=== PATIENT | female | born 1930 | race Caucasian/White ===

== ENCOUNTER 2016-12-10 00:18 | Inpatient (IN) | payer MEDICARE, OTHER ==
[~2016-12-10] VITALS: Ht 152.4 cm; Wt 80.4 kg
[~2016-12-10 00:18] MED LIST: ATEN1TAB3 PO; CIPR500T87 PO; CLOP75TA PO; FENO48TA16 PO; FLUO20SO PO; GLYB5TAB3 PO; LOSA100T6 PO; LOVA40TA2 PO; PIOG30TA8 PO; POTA20TA6 PO
[2016-12-10] MEDS ORDERED: SODIUM CHLORIDE 0.9% 1,000 ML IV ONE (00:24)
[2016-12-10] MEDS ORDERED: SODIUM CHLORIDE FLUSH 10ML SYR IVF ONE (00:30)
[2016-12-10] MEDS ORDERED: ONDANSETRON 2MG/ML, 2ML IVPush ONE (00:30)
[2016-12-10] MEDS ORDERED: ONDANSETRON 2MG/ML, 2ML ONE (00:39)
[2016-12-10] MEDS ORDERED: MORPHINE SULFATE 4 MG/ML, 1ML ONE ×2 (00:39→02:11)
[2016-12-10] MEDS ORDERED: FENO48TA5 PO (00:42)
[2016-12-10] MEDS ORDERED: CLOP75TA PO (00:42)
[2016-12-10] MEDS ORDERED: CHLO25TA PO (00:42)
[2016-12-10] MEDS ORDERED: ATEN25TA PO (00:42)
[2016-12-10] MEDS ORDERED: DONE10TA14 PO (00:42)
[2016-12-10] MEDS: MORPHINE SULFATE 4 MG/ML, 1ML IVPush PRN ×2 (00:57→02:15)
[2016-12-10 02:07] LABS: BLOOD UREA NITROGEN 28 mg/dL (7-18)
[2016-12-10] MEDS ORDERED: ACETAMINOPHEN 325 MG TABLET PO PRN (03:30)
[2016-12-10] MEDS ORDERED: DEXTROSE 50%, 50ML SYRINGE IVPush PRN (03:30)
[2016-12-10] MEDS ORDERED: ONDANSETRON 2MG/ML, 2ML IVPush PRN (03:30)
[2016-12-10] MEDS ORDERED: POLYETHYLENE GLYCOL 17 GM PACKET PO PRN (03:30)
[2016-12-10] MEDS ORDERED: DEXTROSE 4 GM TAB.CHEW PO PRN (03:30)
[2016-12-10] MEDS ORDERED: BISACODYL 10 MG SUPP PR PRN (03:30)
[2016-12-10] MEDS ORDERED: GLUCAGON 1 MG IM PRN (03:30)
[2016-12-10] MEDS: morphine SULFATE 10 MG/ML, 1ML IVPush PRN ×3 (03:52→21:45)
[2016-12-10] MEDS: LORazepam 0.5MG TABLET PO PRN ×2 (04:07→17:01)
[2016-12-10] MEDS: ENOXAPARIN 30 MG/0.3 ML SQ SCH (04:07)
[2016-12-10 04:27] VITALS: BP 146/74
[2016-12-10] MEDS: NS + 20MEQ KCL 1,000 ML IV SCH ×2 (04:29→23:03)
[2016-12-10] MEDS: INSULIN ASPART 100 UNITS/ML, PEN SQ-INSULIN SCH ×5 (04:49→23:25)
[2016-12-10 07:00] VITALS: BP 100/54
[2016-12-10] MEDS: HYDROcodone/APAP 5/325 TABLET PO PRN (08:48)
[2016-12-10] MEDS: FENOFIBRATE 54 MG TABLET PO SCH (08:48)
[2016-12-10] MEDS: DOCUSATE 100 MG CAPSULE PO PRN (08:48)
[2016-12-10] MEDS: POTASSIUM CHLORIDE 20 MEQ TAB.ER.PRT PO SCH (08:49)
[2016-12-10] MEDS: DONEPEZIL 10 MG TABLET PO SCH (08:49)
[2016-12-10] MEDS: CLOPIDOGREL 75 MG TABLET PO SCH (08:49)
[2016-12-10] MEDS: SODIUM CHLORIDE FLUSH 10ML SYR IVF SCH ×2 (08:49→21:45)
[2016-12-10] MEDS: FLUOXETINE 20 MG CAPSULE PO SCH (08:49)
[2016-12-10] MEDS ORDERED: ATENOLOL 25 MG TABLET PO SCH (09:00)
[2016-12-10] MEDS ORDERED: CHLORTHALIDONE 25 MG TABLET PO SCH (09:00)
[2016-12-10] MEDS ORDERED: LOSARTAN 50MG TABLET PO SCH (09:00)
[2016-12-10 12:18] VITALS: BP 84/47
[2016-12-10 16:38] VITALS: BP 111/72
[2016-12-10 20:27] VITALS: BP 123/79
[2016-12-10] MEDS: LOVASTATIN 40 MG TABLET PO SCH ×2 (21:45→21:53)
[2016-12-10] MEDS: ATENOLOL 25 MG TABLET PO SCH ×2 (21:45→21:53)
[2016-12-11] MEDS: morphine SULFATE 10 MG/ML, 1ML IVPush PRN ×3 (00:53→10:10)
[2016-12-11 02:35] VITALS: BP 105/64
[2016-12-11] MEDS: ENOXAPARIN 30 MG/0.3 ML SQ SCH (04:05)
[2016-12-11 05:48] LABS: ASPARTATE AMINO TRANSFERASE 14 U/L (15-37); BLOOD UREA NITROGEN 27 mg/dL (7-18)
[2016-12-11 06:35] VITALS: BP 116/73
[2016-12-11] MEDS: LOSARTAN 50MG TABLET PO SCH (09:40)
[2016-12-11] MEDS: INSULIN ASPART 100 UNITS/ML, PEN SQ-INSULIN SCH ×4 (09:47→22:01)
[2016-12-11] MEDS: CHLORTHALIDONE 25 MG TABLET PO SCH (09:48)
[2016-12-11] MEDS: DONEPEZIL 10 MG TABLET PO SCH (09:48)
[2016-12-11] MEDS: FENOFIBRATE 54 MG TABLET PO SCH (09:48)
[2016-12-11] MEDS: FLUOXETINE 20 MG CAPSULE PO SCH (09:48)
[2016-12-11] MEDS: HYDROcodone/APAP 5/325 TABLET PO PRN ×2 (09:48→21:52)
[2016-12-11] MEDS: POTASSIUM CHLORIDE 20 MEQ TAB.ER.PRT PO SCH (09:48)
[2016-12-11] MEDS: CLOPIDOGREL 75 MG TABLET PO SCH (09:49)
[2016-12-11] MEDS: ATENOLOL 25 MG TABLET PO SCH ×2 (09:49→21:53)
[2016-12-11] MEDS: SODIUM CHLORIDE FLUSH 10ML SYR IVF SCH ×2 (10:11→21:53)
[2016-12-11] MEDS ORDERED: ERGOCALCIFEROL 50,000 UNIT CAPSULE PO SCH (10:30)
[2016-12-11] MEDS: DIPHENHYDRAMINE 25 MG CAPSULE PO PRN (12:44)
[2016-12-11 14:05] VITALS: BP 92/56
[2016-12-11 20:00] VITALS: BP 110/64
[2016-12-11] MEDS: LOVASTATIN 40 MG TABLET PO SCH (21:52)
[2016-12-12 02:47] VITALS: BP 124/70
[2016-12-12] MEDS: ENOXAPARIN 30 MG/0.3 ML SQ SCH (04:29)
[2016-12-12] MEDS: HYDROcodone/APAP 5/325 TABLET PO PRN ×4 (05:38→23:21)
[2016-12-12 06:45] VITALS: BP 124/73
[2016-12-12] MEDS: INSULIN ASPART 100 UNITS/ML, PEN SQ-INSULIN SCH ×4 (09:53→23:22)
[2016-12-12] MEDS: LOSARTAN 50MG TABLET PO SCH (09:54)
[2016-12-12] MEDS: FENOFIBRATE 54 MG TABLET PO SCH (09:54)
[2016-12-12] MEDS: CHLORTHALIDONE 25 MG TABLET PO SCH (09:54)
[2016-12-12] MEDS: FLUOXETINE 20 MG CAPSULE PO SCH (09:54)
[2016-12-12] MEDS: POTASSIUM CHLORIDE 20 MEQ TAB.ER.PRT PO SCH (09:54)
[2016-12-12] MEDS: ATENOLOL 25 MG TABLET PO SCH ×2 (09:54→23:21)
[2016-12-12] MEDS: DONEPEZIL 10 MG TABLET PO SCH (09:54)
[2016-12-12] MEDS: CLOPIDOGREL 75 MG TABLET PO SCH (09:55)
[2016-12-12] MEDS: SODIUM CHLORIDE FLUSH 10ML SYR IVF SCH ×2 (10:06→23:25)
[2016-12-12 13:00] VITALS: BP 94/60
[2016-12-12 20:11] VITALS: BP 106/65
[2016-12-12] MEDS: LOVASTATIN 40 MG TABLET PO SCH (23:21)
[2016-12-13 02:30] VITALS: BP 109/53
[2016-12-13] MEDS: ENOXAPARIN 30 MG/0.3 ML SQ SCH (04:47)
[2016-12-13] MEDS: HYDROcodone/APAP 5/325 TABLET PO PRN ×2 (06:41→22:07)
[2016-12-13 07:14] VITALS: BP 115/68
[2016-12-13] MEDS: INSULIN ASPART 100 UNITS/ML, PEN SQ-INSULIN SCH ×4 (08:27→22:08)
[2016-12-13] MEDS: LOSARTAN 50MG TABLET PO SCH (08:28)
[2016-12-13] MEDS: SODIUM CHLORIDE FLUSH 10ML SYR IVF SCH ×2 (08:28→21:43)
[2016-12-13] MEDS: DONEPEZIL 10 MG TABLET PO SCH (08:29)
[2016-12-13] MEDS: ATENOLOL 25 MG TABLET PO SCH ×2 (08:29→21:43)
[2016-12-13] MEDS: CLOPIDOGREL 75 MG TABLET PO SCH (08:29)
[2016-12-13] MEDS: POTASSIUM CHLORIDE 20 MEQ TAB.ER.PRT PO SCH (08:29)
[2016-12-13] MEDS: FENOFIBRATE 54 MG TABLET PO SCH (08:29)
[2016-12-13] MEDS: CHLORTHALIDONE 25 MG TABLET PO SCH (08:30)
[2016-12-13] MEDS: FLUOXETINE 20 MG CAPSULE PO SCH (08:30)
[2016-12-13 15:13] VITALS: BP 148/76
[2016-12-13] MEDS: morphine SULFATE 10 MG/ML, 1ML IVPush PRN (19:05)
[2016-12-13 21:00] VITALS: BP 146/77
[2016-12-13] MEDS: LOVASTATIN 40 MG TABLET PO SCH (21:43)
[2016-12-14 02:30] VITALS: BP 130/76
[2016-12-14] MEDS: ENOXAPARIN 30 MG/0.3 ML SQ SCH (06:17)
[2016-12-14] MEDS: morphine SULFATE 10 MG/ML, 1ML IVPush PRN ×2 (06:38→12:22)
[2016-12-14] MEDS: DIPHENHYDRAMINE 25 MG CAPSULE PO PRN (08:04)
[2016-12-14] MEDS: INSULIN ASPART 100 UNITS/ML, PEN SQ-INSULIN SCH ×4 (08:05→20:00)
[2016-12-14] MEDS: SODIUM CHLORIDE FLUSH 10ML SYR IVF SCH ×2 (08:06→20:05)
[2016-12-14] MEDS: POTASSIUM CHLORIDE 20 MEQ TAB.ER.PRT PO SCH (08:06)
[2016-12-14] MEDS: DONEPEZIL 10 MG TABLET PO SCH (08:07)
[2016-12-14] MEDS: FENOFIBRATE 54 MG TABLET PO SCH (08:07)
[2016-12-14] MEDS: CLOPIDOGREL 75 MG TABLET PO SCH (08:09)
[2016-12-14 08:10] VITALS: BP 144/80
[2016-12-14] MEDS: ATENOLOL 25 MG TABLET PO SCH ×2 (08:10→20:00)
[2016-12-14] MEDS: LOSARTAN 50MG TABLET PO SCH (08:10)
[2016-12-14] MEDS: FLUOXETINE 20 MG CAPSULE PO SCH (08:10)
[2016-12-14 12:28] VITALS: BP 137/71
[2016-12-14] MEDS: HYDROcodone/APAP 5/325 TABLET PO PRN ×2 (12:39→20:00)
[2016-12-14] MEDS: FAMOTIDINE 20 MG TABLET PO SCH ×2 (13:32→20:00)
[2016-12-14] MEDS: CHLORTHALIDONE 25 MG TABLET PO SCH (13:32)
[2016-12-14 14:34] VITALS: BP 116/73
[2016-12-14 19:47] VITALS: BP 139/74
[2016-12-14] MEDS: LOVASTATIN 40 MG TABLET PO SCH (20:00)
[2016-12-15] MEDS: HYDROcodone/APAP 5/325 TABLET PO PRN ×4 (02:15→19:58)
[2016-12-15] MEDS: DIPHENHYDRAMINE 25 MG CAPSULE PO PRN ×3 (02:15→19:57)
[2016-12-15 02:31] VITALS: BP 147/71
[2016-12-15 07:56] VITALS: BP 117/70
[2016-12-15] MEDS: INSULIN ASPART 100 UNITS/ML, PEN SQ-INSULIN SCH ×4 (08:49→19:57)
[2016-12-15] MEDS: ENOXAPARIN 30 MG/0.3 ML SQ SCH (08:49)
[2016-12-15] MEDS: DONEPEZIL 10 MG TABLET PO SCH (08:50)
[2016-12-15] MEDS: LOSARTAN 50MG TABLET PO SCH (08:50)
[2016-12-15] MEDS: FAMOTIDINE 20 MG TABLET PO SCH ×2 (08:51→19:57)
[2016-12-15] MEDS: FLUOXETINE 20 MG CAPSULE PO SCH (08:51)
[2016-12-15] MEDS: CHLORTHALIDONE 25 MG TABLET PO SCH (08:51)
[2016-12-15] MEDS: POTASSIUM CHLORIDE 20 MEQ TAB.ER.PRT PO SCH (08:51)
[2016-12-15] MEDS: ATENOLOL 25 MG TABLET PO SCH ×2 (08:51→19:58)
[2016-12-15] MEDS: CLOPIDOGREL 75 MG TABLET PO SCH (08:51)
[2016-12-15] MEDS: FENOFIBRATE 54 MG TABLET PO SCH (08:52)
[2016-12-15] MEDS: SODIUM CHLORIDE FLUSH 10ML SYR IVF SCH ×2 (08:58→19:58)
[2016-12-15 12:52] VITALS: BP 94/55
[2016-12-15] MEDS ORDERED: HYDR-3240 PO (14:27)
[2016-12-15] MEDS ORDERED: BISA10SU65 PR (14:27)
[2016-12-15] MEDS ORDERED: FAMO20TA7 PO (14:27)
[2016-12-15] MEDS ORDERED: ACET325T14 PO (14:27)
[2016-12-15] MEDS ORDERED: DOCU-30 PO (14:27)
[2016-12-15] MEDS ORDERED: INSU100I18 SQ-INSULIN (14:27)
[2016-12-15] MEDS ORDERED: ERGO500017 PO (14:27)
[2016-12-15] MEDS ORDERED: FLUO20CA8 PO (14:27)
[2016-12-15] MEDS ORDERED: POLY17PO5 PO (14:27)
[2016-12-15 19:52] VITALS: BP 113/67
[2016-12-15] MEDS: LOVASTATIN 40 MG TABLET PO SCH (19:57)
[2016-12-16 02:07] VITALS: BP 112/67
[2016-12-16] MEDS: HYDROcodone/APAP 5/325 TABLET PO PRN ×3 (03:40→15:26)
[2016-12-16 07:38] VITALS: BP 107/65
[2016-12-16] MEDS: LOSARTAN 50MG TABLET PO SCH (07:54)
[2016-12-16] MEDS: ATENOLOL 25 MG TABLET PO SCH (07:55)
[2016-12-16] MEDS: CHLORTHALIDONE 25 MG TABLET PO SCH (07:55)
[2016-12-16] MEDS: INSULIN ASPART 100 UNITS/ML, PEN SQ-INSULIN SCH ×3 (08:02→16:17)
[2016-12-16] MEDS: POTASSIUM CHLORIDE 20 MEQ TAB.ER.PRT PO SCH (08:02)
[2016-12-16] MEDS: FAMOTIDINE 20 MG TABLET PO SCH (08:02)
[2016-12-16] MEDS: ENOXAPARIN 30 MG/0.3 ML SQ SCH (08:02)
[2016-12-16] MEDS: DONEPEZIL 10 MG TABLET PO SCH (08:02)
[2016-12-16] MEDS: CLOPIDOGREL 75 MG TABLET PO SCH (08:02)
[2016-12-16] MEDS: FLUOXETINE 20 MG CAPSULE PO SCH (08:02)
[2016-12-16] MEDS: FENOFIBRATE 54 MG TABLET PO SCH (08:03)
[2016-12-16] MEDS: LORazepam 0.5MG TABLET PO PRN (08:03)
[2016-12-16] MEDS: SODIUM CHLORIDE FLUSH 10ML SYR IVF SCH (08:04)
[2016-12-16] MEDS: DOCUSATE 100 MG CAPSULE PO PRN (08:19)
[2016-12-16 13:53] VITALS: BP 116/71
== END 2016-12-16 16:42 | disposition home or self-care (01) | DRG 535 ==
LOC: ED 00:38 → EDIP 02:43 → 4NOR 03:46 → 3NE 12-13 01:49
PROC: 0T9B70Z Drainage of Bladder with Drainage Device, Via Natural or Artificial Opening (ICD-10-PCS; 2016-12-10)
PROC: 0QS3XZZ Reposition Left Pelvic Bone, External Approach (ICD-10-PCS; principal; 2016-12-13)
DX: S32.432A Displaced fracture of anterior column [iliopubic] of left acetabulum, initial encounter for closed fracture (principal); N17.0 Acute kidney failure with tubular necrosis; E87.1 Hypo-osmolality and hyponatremia; E87.0 Hyperosmolality and hypernatremia; S32.592A Other specified fracture of left pubis, initial encounter for closed fracture; E11.9 Type 2 diabetes mellitus without complications; E55.9 Vitamin D deficiency, unspecified; E78.00 Pure hypercholesterolemia, unspecified; E78.5 Hyperlipidemia, unspecified; F03.90 Unspecified dementia, unspecified severity, without behavioral disturbance, psychotic disturbance, mood disturbance, and anxiety; G89.11 Acute pain due to trauma; I11.9 Hypertensive heart disease without heart failure; S51.011A Laceration without foreign body of right elbow, initial encounter; W18.30XA Fall on same level, unspecified, initial encounter; Z82.3 Family history of stroke; Z82.49 Family history of ischemic heart disease and other diseases of the circulatory system; Z86.73 Personal history of transient ischemic attack (TIA), and cerebral infarction without residual deficits; Y93.89 Activity, other specified; Y92.89 Other specified places as the place of occurrence of the external cause; Y99.8 Other external cause status; F32.9 Major depressive disorder, single episode, unspecified
CPT/HCPCS: 36415; 51702; 70450; 71010; 72190; 72192; 80048; 80053; 81001; 82040; 82306; 82962; 83036; 85025; 85610; 85730; 86850; 86900; 93005; 96361; 96374; 96375; 96376; J1650; J1815; J2405; J3480; J2270; J7030; Q0163

== ENCOUNTER → 2017-05-05 | Outpatient (CLI) | payer BC, MEDICARE, OTHER ==
[~2017-05-05] MED LIST changes: +ACET325T14 PO; +ATEN25TA PO; +BISA10SU65 PR; +CHLO25TA PO; +DOCU-131 PO; +DONE10TA14 PO; +ERGO500017 PO; +FAMO20TA7 PO; +FENO48TA5 PO; +FLUO20CA8 PO; +HYDR-3240 PO; +INSU100I18 SQ-INSULIN; +PIOG30TA23 PO; -PIOG30TA8 PO; +POLY17PO5 PO
== END | disposition home or self-care (01) ==
LOC: CFH 10:35
PROVIDERS: ATTEND Surgery Vascular Surgery
DX: I65.23 Occlusion and stenosis of bilateral carotid arteries (principal)
CPT/HCPCS: 93880